=== PATIENT | male | born 1960 | race African-American/Black ===

== ENCOUNTER 2016-09-19 18:54 | Inpatient (IN) | payer SELFPAY ==
[~2016-09-19] VITALS: Ht 160 cm; Wt 63.0 kg
[2016-09-19] MEDS ORDERED: hydrALAZINE 20 MG/ML VIAL. IVP ONE (19:45)
[2016-09-19] MEDS ORDERED: NITROGLYCERIN SUBLINGUAL 0.4 MG BOTTLE OF 25. SL PRN (20:00)
[2016-09-19] MEDS ORDERED: MORPHINE SULFATE 4 MG/ML DISP.SYRIN. IV PRN (20:00)
[2016-09-19] MEDS ORDERED: ONDANSETRON PF 4 MG/2 ML VIAL. IV PRN (20:00)
[2016-09-19 20:16] LABS: BASO % 0 % (0-3); EOS % 4 % (0-3); HEMATOCRIT 43.7 % (39.0-53.0); HEMOGLOBIN 14.4 g/dL (13.0-17.5); LYMPH # 2.1 x10^3/uL (1.0-4.8); LYMPH % 44 % (24-48); MEAN CORPUSCULAR HEMOGLOBIN 32 pg (25-35); MEAN CORPUSCULAR HGB CONC 33 g/dL (31-37); MEAN CORPUSCULAR VOLUME 97 fL (79-100); MONO % 9 % (0-9); NEUT % 43 % (31-73); PLATELET COUNT 197 x10^3/uL (140-400); RED BLOOD COUNT 4.53 x10^6/uL (4.30-5.70); RED CELL DISTRIBUTION WIDTH 14.1 % (11.5-14.5); WHITE BLOOD COUNT 4.9 x10^3/uL (4.0-11.0)
[2016-09-19 20:19] LABS: CREATININE 1.2 mg/dL (0.7-1.3); GFR 75.5; POTASSIUM 3.7 mmol/L (3.5-5.1)
[2016-09-19 20:27] LABS: ALBUMIN 3.5 g/dL (3.4-5.0); TOTAL BILIRUBIN 0.5 mg/dL (0.2-1.0)
[2016-09-19] MEDS: NICARDIPINE HCL 50 MG in IV NORMAL SALINE 250ML 250 ML IV PRN ×2 (20:27→23:56)
--- NOTE | 2016-09-19 20:52 | PHYS DOC ---
Past Medical History Past Medical History: Hypertension Past Surgical History: Other Additional Past Surgical Histo: l arm ortho, Alcohol Use: Occasionally Drug Use: None Adult General Chief Complaint Chief Complaint: CHEST PAIN HPI HPI 56-year-old homeless male who has never really received any medical care presents with off and on chest pain and shortness of breath. Currently he states he feels like he is under water when he is lying flat. He denies any fever chills sweats or hemoptysis. He states is not really had any trouble with swelling in his lower extremities. He denies any illicit drugs.] Review of Systems Review of Systems Constitutional: Denies fever or chills [] Eyes: Denies change in visual acuity, redness, or eye pain [] HENT: Denies nasal congestion or sore throat [] Respiratory: Per history of present illness [] Cardiovascular: No additional information not addressed in HPI [] GI: Denies abdominal pain, nausea, vomiting, bloody stools or diarrhea [] : Denies dysuria or hematuria [] Musculoskeletal: Denies back pain or joint pain [] Integument: Denies rash or skin lesions [] Neurologic: Denies headache, focal weakness or sensory changes [] Endocrine: Denies polyuria or polydipsia [] Current Medications Current Medications Current Medications Medications (Trade) Dose Ordered Sig/Rima Start Time Stop Time Status Last Admin Dose Admin Hydralazine HCl (Apresoline) 10 mg 1X ONCE 09/19/16 19:45 09/19/16 19:51 DC 09/19/16 20:21 10 MG Morphine Sulfate 4 mg PRN Q2HR PRN 09/19/16 20:00 09/20/16 19:59 Nicardipine HCl/ Sodium Chloride (Cardene/Iv Sodium Chloride 0.9% 250ml) 270 ml @ 0 mls/hr CONT PRN 09/19/16 20:00 09/19/16 20:27 25 MLS/HR Nitroglycerin 0.4 mg 0.4 mg PRN Q5MIN PRN 09/19/16 20:00 09/20/16 19:59 Ondansetron HCl (Zofran) 4 mg PRN Q8HRS PRN 09/19/16 20:00 09/20/16 19:59 09/19/16 20:21 4 MG Allergies Allergies Allergies Coded Allergies Type Severity Reaction Last Updated Verified No Known Drug Allergies 09/19/16 No Physical Exam Physical Exam Constitutional: Well developed, well nourished, no acute distress, non-toxic appearance. [] HENT: Normocephalic, atraumatic, bilateral external ears normal, oropharynx moist, no oral exudates, nose normal. [] Eyes: PERRLA, EOMI, conjunctiva normal, no discharge. [] Neck: Normal range of motion, no tenderness, supple, no stridor. [] Cardiovascular:Heart rate regular rhythm, no murmur [] Lungs & Thorax: Bilateral breath sounds clear to auscultation [] Abdomen: Bowel sounds normal, soft, no tenderness, no masses, no pulsatile masses. [] Skin: Warm, dry, no erythema, no rash. [] Back: No tenderness, no CVA tenderness. [] Extremities: No tenderness, no cyanosis, no clubbing, ROM intact, no edema. [] Neurologic: Alert and oriented X 3, normal motor function, normal sensory function, no focal deficits noted. [] Psychologic: Depressed affect. [] Current Patient Data Vital Signs Vital Signs Date Time Temp Pulse Resp B/P Pulse Ox O2 Delivery O2 Flow Rate FiO2 09/19/16 20:32 80 18 181/110 96 Room Air 09/19/16 19:15 98.1 98.1 Lab Values Laboratory Tests Test 09/19/16 19:55 White Blood Count 4.9x10^3/uL (4.0-11.0) Red Blood Count 4.53x10^6/uL (4.30-5.70) Hemoglobin 14.4g/dL (13.0-17.5) Hematocrit 43.7% (39.0-53.0) Mean Corpuscular Volume 97fL (79-100) Mean Corpuscular Hemoglobin 32pg (25-35) Mean Corpuscular Hemoglobin Concent 33g/dL (31-37) Red Cell Distribution Width 14.1% (11.5-14.5) Platelet Count 197x10^3/uL (140-400) Neutrophils (%) (Auto) 43% (31-73) Lymphocytes (%) (Auto) 44% (24-48) Monocytes (%) (Auto) 9% (0-9) Eosinophils (%) (Auto) 4% (0-3) H Basophils (%) (Auto) 0% (0-3) Neutrophils # (Auto) 2.1x10^3uL (1.8-7.7) Lymphocytes # (Auto) 2.1x10^3/uL (1.0-4.8) Monocytes # (Auto) 0.5x10^3/uL (0.0-1.1) Eosinophils # (Auto) 0.2x10^3/uL (0.0-0.7) Basophils # (Auto) 0.0x10^3/uL (0.0-0.2) Sodium Level 145mmol/L (136-145) Potassium Level 3.7mmol/L (3.5-5.1) Chloride Level 106mmol/L (98-107) Carbon Dioxide Level 27mmol/L (21-32) Anion Gap 12 (6-14) Blood Urea Nitrogen 18mg/dL (8-26) Creatinine 1.2mg/dL (0.7-1.3) Estimated GFR (Cockcroft-Gault) 75.5 BUN/Creatinine Ratio 15 (6-20) Glucose Level 117mg/dL (70-99) H Calcium Level 9.0mg/dL (8.5-10.1) Total Bilirubin 0.5mg/dL (0.2-1.0) Aspartate Amino Transferase (AST) 72U/L (15-37) H Alanine Aminotransferase (ALT) 65U/L (16-63) H Alkaline Phosphatase 47U/L (46-116) Troponin I Quantitative 0.094ng/mL (0.000-0.055) Total Protein 7.0g/dL (6.4-8.2) Albumin 3.5g/dL (3.4-5.0) Albumin/Globulin Ratio 1.0 (1.0-1.7) Laboratory Tests 09/19/16 19:55 Laboratory Tests 09/19/16 19:55 EKG EKG EKG: Normal sinus rhythm hypertensive changes rate of 70 [] Radiology/Procedures Radiology/Procedures [] Impressions: Chest x-ray: Cardiomegaly with mild venous congestion Course & Med Decision Making Course & Med Decision Making Pertinent Labs and Imaging studies reviewed. (See chart for details) [ED course: Evaluation reveals a 56-year-old male with malignant hypertension. Patient was given 10 mg of hydralazine which did lower his blood pressure into the 180 range with a reduction in symptoms. He was also started on a Cardene drip which stabilized his blood pressure. Spoke with Dr. Atkinson who agreed to admit the patient. We will consult cardiology to help with his abnormal EKG. CRITICAL CARE time was 30 minutes - time exclusive of any procedures performed. Care included medical management, x-ray/lab interpretation, discussions with the patient and their family as well as appropriate medical consultants.] Dragon Disclaimer Dragon Disclaimer This electronic medical record was generated, in whole or in part, using a voice recognition dictation system. Departure Departure Impression: Primary Impression: Malignant essential hypertension Additional Impression: Chest pain Disposition: ADMITTED INPATIENT Admitting Physician: Other (Dr. Atkinson) Referrals: NO PCP (PCP) Problem Qualifiers Additional Impression: Chest pain Chest pain type: unspecified Qualified Code: R07.9 - Chest pain, unspecified CLIFTON MEDELLIN DO Sep 19, 2016 20:52
--- NOTE | 2016-09-19 21:10 | ACF ---
Admission Forms Criteria HYPERTENSION Clinical Indications for Admission to Inpatient Care ( Place "X" for any and all applicable criteria): Admission is indicated for ANY ONE of the following(1)(2)(3)(4): [ ]I. Hypertensive emergency, with evidence of acute and progressing target organ disease as indicated by ANY ONE of the following: [ ]a) Hypertensive encephalopathy (eg, confusion, altered mental status) [ ]b) Cerebral infarction [ ]c) Intracranial hemorrhage [ ]d) Myocardial ischemia or infarction [ ]e) Pulmonary edema [ ]f) Aortic dissection [ ]g) Seizure [ ]h) Acute renal insufficiency [ ]i) Papilledema [ ]j) Microangiopathic hemolytic anemia [ ]II. Adrenergic crisis (eg, severe hypertension due to pheochromocytoma crisis, cocaine or amphetamine intoxication, or clonidine withdrawal) [X]III. Severe hypertension (SBP greater than 180 mmHg or DBP greater than 110 mmHg or greater than the 95th percentile for age, gender, and height in pediatric patients) that cannot be controlled (eg, to SBP less than 160 mmHg and DBP less than 100 mmHg in adults) by treatment with oral medication in emergency department or observation care Extended stay beyond goal length of stay may be needed for(11)(12)(13): [ ]a) Persistent hypertensive encephalopathy [ ]b) Continuation of pulmonary edema [ ]c) Recurring or persistent severe hypertension [ ]d) Target organ damage (eg, angina, stroke, aortic dissection) [ ]e) Associated renal insufficiency The original [facility] content created by [employer] has been revised. The portions of the content which have been revised are identified through the use of italic text or in bold, and [facility] has neither reviewed nor approved the modified material. All other unmodified content is copyright [facility] [employer]. Please see references footnoted in the original [facility] edition 2016 Admission Criteria Met?: Yes JOSELO MUÑOZ Sep 19, 2016 21:10
[2016-09-19] MEDS ORDERED: IV NORMAL SALINE 500ML BAG 500 ML IV ONE ×2 (21:15→22:15)
[2016-09-19] MEDS ORDERED: PROMETHAZINE 12.5 MG in IV NORMAL SALINE 50ML 50 ML IV ONE (21:15)
[2016-09-19 23:00] VITALS: BP 208/125
[2016-09-19] MEDS ORDERED: INFLUENZA VAX SCREEN BY RX. MC ONE (23:15)
[2016-09-19 23:32] LABS: BILIRUBIN,URINE NEGATIVE (NEG); GLUCOSE,URINE 100 mg/dL (NEG); NITRITE,URINE NEGATIVE (NEG); PH,URINE 6.5; PROTEIN,URINE NEGATIVE (NEG-TRACE)
[2016-09-19 23:40] LABS: BARBITURATES NEG (NEG); BENZODIAZEPINES NEG (NEG); CANNABINOIDS NEG (NEG); COCAINE POS (NEG); ETHANOL, URINE POS (NEG); METHADONE NEG (NEG); OPIATES NEG (NEG); PHENCYCLIDINE NEG (NEG)
[2016-09-19 23:42] LABS: BACTERIA,URINE 0 /HPF (0-FEW); RBC,URINE 0 /HPF (0-2); WBC,URINE RARE /HPF (0-4)
[2016-09-20] VITALS (15 sets, daily range): BP systolic 107–176; BP diastolic 68–102
--- NOTE | 2016-09-20 01:10 | HP ---
ADMIT DATE: 09/19/2016 CHIEF COMPLAINT: Shortness of breath. HISTORY OF PRESENT ILLNESS: The patient is a 56-year-old gentleman who apparently is homeless, but is helped out by an elderly woman from time to time. She dropped him off today with increased shortness of breath. In the Emergency Room, he was found with hypertensive urgency, started on Cardene drip and admitted to the ICU. The patient relates now that his symptoms are much improved. He denies any chest pain, any palpitations, any nausea, vomiting or dizziness. PAST MEDICAL HISTORY: Hypertension, not on any medications. FAMILY HISTORY: Unknown to patient. SOCIAL HISTORY: Homeless, smokes about 2 cigarettes a day. Admits to a few beers a day, admits to cannabis. Denies any other drugs. However, drug screen today is positive for cocaine as well. ALLERGIES: No known drug allergies. MEDICATIONS: None. REVIEW OF SYSTEMS: Positive as per HPI. Rest of organ system review is negative. PHYSICAL EXAMINATION: VITAL SIGNS: Currently, show a blood pressure of 162/92, heart rate of 77, respiratory rate at 18. He is afebrile. GENERAL: This is a well-nourished, well developed 56-year-old gentleman resting in bed, in no acute distress. HEENT: Shows no scleral icterus. NECK: Supple. LUNGS: Clear to auscultation bilaterally. CARDIOVASCULAR: Regular rate and rhythm. ABDOMEN: Has positive bowel sounds, soft, nontender. EXTREMITIES: Show no edema. LABORATORY DATA: CBC with a WBC of 4.9, hemoglobin 14.4, platelets of 197. BUN and creatinine 18 and 1.2 and normal electrolytes. LFTs slightly elevated at 72 and 65. Initial troponin at 0.094. ProBNP at 1250. Tox screen positive for alcohol and cocaine. IMAGING: Chest x-ray reviewed by myself shows mild cardiomegaly and no pulmonary abnormalities. ASSESSMENT AND PLAN: The patient is a 56-year-old gentleman with known hypertension, untreated, who now presents with hypertensive urgency. Blood pressure is getting under control with Cardizem drip. Cardiology has been consulted. Suspect, however, that noncompliance with medications will be the stumbling block in the near future as well. With mildly elevated troponins, we will rule out for ACS. Suspicion, however, is that this may be secondary to hypertensive urgency. Drug abuse including cocaine may play a role in there as well. ANAND MELCHOR MD DR: FILI/nts JOB#: [id number] / [id number] MARCIE
--- NOTE | 2016-09-20 06:49 | EKG ---
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
--- NOTE | 2016-09-20 08:01 | RAD ---
Portable chest, 09/19/2016: History: Shortness of breath The heart is mildly enlarged. There is tortuosity of the thoracic aorta. The pulmonary vascularity is normal. No pulmonary infiltrates are seen. There is no evidence of pleural fluid. IMPRESSION: 1. Mild cardiomegaly and aortic tortuosity. 2. No acute abnormality is detected.
[2016-09-20] MEDS ORDERED: FLU VACC QUAD 2016-17 (36MOS+)/PF 0.5 ML SYRINGE. VAX IM ONE (09:00)
[2016-09-20] MEDS ORDERED: ONDANSETRON PF 4 MG/2 ML VIAL. IV PRN (09:52)
[2016-09-20] MEDS ORDERED: ACETAMINOPHEN 500 MG TABLET PO PRN (10:00)
--- NOTE | 2016-09-20 10:27 | PDOC2 ---
RAYMOND AL NETWORK PROJECT MANAGER 09/20/16 1027: CARDIAC CONSULT DATE OF CONSULT Date of Consult DATE: 09/20/16 TIME: 10:11 REASON FOR CONSULT Reason for Consult: SOA, abnormal EKG REFERRING PHYSICIAN Referring Physician: Sanjuana SOURCE Source: Chart review, Patient HISTORY OF PRESENT ILLNESS HISTORY OF PRESENT ILLNESS This is a 56 yo male admitted for complains of SOA. This has been ongoing in the last 1-2 weeks and progressed gradually. Started of with SOA with exertion then to rest, progressing to orthopnea, nonproductive cough and PND. Denies any chest pain, palpitations or dizziness. Denies any past CAD, arrhythmia, VTE , recent injury, fever, chills. Reports use of tobacco, ETOH, marijuana and cocaine. PAST MEDICAL HISTORY Past Medical History Known HTN otherwise no other history. No routine medications PAST SURGICAL HISTORY Past Surgical History: Other (left elbow repair) FAMILY HISTORY Family History: Family History Unknown SOCIAL HISTORY Smoke: <1 pack per day ALCOHOL: heavy (4-5 shots of gin 4x weekly) Drugs: Cocaine, Marijuana Lives: Alone (homeless) CURRENT MEDICATIONS CURRENT MEDICATIONS Current Medications Medications (Trade) Dose Ordered Sig/Rima Route PRN Reason Start Time Stop Time Status Last Admin Dose Admin Hydralazine HCl (Apresoline) 10 mg 1X ONCE IVP 09/19/16 19:45 09/19/16 19:51 DC 09/19/16 20:21 Ondansetron HCl 4 mg 4 mg PRN Q8HRS PRN IV NAUSEA/VOMITING 09/19/16 20:00 09/20/16 09:53 DC 09/19/16 20:21 Nicardipine HCl 50 mg/Sodium Chloride 270 ml @ 0 mls/hr CONT PRN IV SEE I/O RECORD 09/19/16 20:00 09/19/16 23:56 Promethazine HCl 12.5 mg/Sodium Chloride 50.5 ml @ 101 mls/hr 1X ONCE IV 09/19/16 21:15 09/19/16 21:44 DC 09/19/16 21:15 Sodium Chloride (Iv Sodium Chloride 0.9% 500ml Bag) 500 ml @ 0 mls/hr 1X ONCE IV 09/19/16 21:15 09/19/16 21:16 DC 09/19/16 21:15 ALLERGIES ALLERGIES: Coded Allergies: No Known Drug Allergies (Unverified , 09/19/16) ROS Review of System 14 point ROS evaluated with pertinent positives noted per HPI PHYSICAL EXAM General: Alert, Oriented X3, Cooperative, No acute distress HEENT: Atraumatic, Mucous membr. moist/pink Lungs: Clear to auscultation, Normal air movement Heart: Regular rate, Normal S1, Normal S2, Other (3/6 systolic murmur to LLS border) Extremities: No cyanosis, No edema Skin: No breakdown, No significant lesion Neuro: Normal speech, Sensation intact Psych/Mental Status: Mental status NL, Mood NL MUSCULOSKELETAL: Osteoarthritic changes both hands VITALS VITALS Vital Signs Date Time Temp Pulse Resp B/P Pulse Ox O2 Delivery O2 Flow Rate FiO2 09/20/16 08:00 Room Air 09/20/16 07:00 98.3 75 18 131/87 97 98.3 LABS Lab: Laboratory Tests Test 09/19/16 19:55 09/19/16 23:00 09/20/16 01:55 09/20/16 08:00 White Blood Count 4.9x10^3/uL (4.0-11.0) Red Blood Count 4.53x10^6/uL (4.30-5.70) Hemoglobin 14.4g/dL (13.0-17.5) Hematocrit 43.7% (39.0-53.0) Mean Corpuscular Volume 97fL (79-100) Mean Corpuscular Hemoglobin 32pg (25-35) Mean Corpuscular Hemoglobin Concent 33g/dL (31-37) Red Cell Distribution Width 14.1% (11.5-14.5) Platelet Count 197x10^3/uL (140-400) Neutrophils (%) (Auto) 43% (31-73) Lymphocytes (%) (Auto) 44% (24-48) Monocytes (%) (Auto) 9% (0-9) Eosinophils (%) (Auto) 4% (0-3) Basophils (%) (Auto) 0% (0-3) Neutrophils # (Auto) 2.1x10^3uL (1.8-7.7) Lymphocytes # (Auto) 2.1x10^3/uL (1.0-4.8) Monocytes # (Auto) 0.5x10^3/uL (0.0-1.1) Eosinophils # (Auto) 0.2x10^3/uL (0.0-0.7) Basophils # (Auto) 0.0x10^3/uL (0.0-0.2) Sodium Level 145mmol/L (136-145) Potassium Level 3.7mmol/L (3.5-5.1) Chloride Level 106mmol/L (98-107) Carbon Dioxide Level 27mmol/L (21-32) Anion Gap 12 (6-14) Blood Urea Nitrogen 18mg/dL (8-26) Creatinine 1.2mg/dL (0.7-1.3) Estimated GFR (Cockcroft-Gault) 75.5 BUN/Creatinine Ratio 15 (6-20) Glucose Level 117mg/dL (70-99) Calcium Level 9.0mg/dL (8.5-10.1) Total Bilirubin 0.5mg/dL (0.2-1.0) Aspartate Amino Transf (AST/SGOT) 72U/L (15-37) Alanine Aminotransferase (ALT/SGPT) 65U/L (16-63) Alkaline Phosphatase 47U/L (46-116) Troponin I Quantitative 0.094ng/mL (0.000-0.055) 0.098ng/mL (0.000-0.055) 0.064ng/mL (0.000-0.055) CS-Nyc-Z-Type Natriuretic Peptide 1250pg/mL (0-124) Total Protein 7.0g/dL (6.4-8.2) Albumin 3.5g/dL (3.4-5.0) Albumin/Globulin Ratio 1.0 (1.0-1.7) Urine Collection Type Unknown Urine Color Yellow Urine Clarity Clear Urine pH 6.5 Urine Specific Froid 1.020 Urine Protein Negativemg/dL (NEG-TRACE) Urine Glucose (UA) 100mg/dL (NEG) Urine Ketones (Stick) Negativemg/dL (NEG) Urine Blood Negative (NEG) Urine Nitrite Negative (NEG) Urine Bilirubin Negative (NEG) Urine Urobilinogen Dipstick 1.0mg/dL (0.2 mg/dL) Urine Leukocyte Esterase Negative (NEG) Urine RBC 0/HPF (0-2) Urine WBC Rare/HPF (0-4) Urine Squamous Epithelial Cells None/LPF Urine Bacteria 0/HPF (0-FEW) Urine Hyaline Casts Few/HPF Urine Mucus Mod/LPF Urine Opiates Screen Neg (NEG) Urine Methadone Screen Neg (NEG) Urine Barbiturates Neg (NEG) Urine Phencyclidine Screen Neg (NEG) Urine Amphetamine/Methamphetamine Neg (NEG) Urine Benzodiazepines Screen Neg (NEG) Urine Cocaine Screen Pos (NEG) Urine Cannabinoids Screen Neg (NEG) Urine Ethyl Alcohol Pos (NEG) ASSESSMENT/PLAN ASSESSMENT/PLAN 1. Malignant HTN: much better with cardene. 2. Acute CHF with possible diastolic dysfunction 3. Poly-Substance abuse: cocaine (1-2x weekly) and ETOH(4-5 shots of gin 4x weekly) 4. Elevated troponin: Peaked at 0.09. Suspect demand mediated due to above. EKG SR with LVH/LV strain. CP free 5. Tobaccoism 6. Homelessness Recommendations 1. Discussed lifestyle modifications and adherence to treatment. 2. Social service consult 3. TTE, CMP, Mg, TSH, lipid panel. 4. Replace lytes as warranted 5. ECASA. Start on lisinopril/HCTZ and imdur. Hydralazine IV prn. Titrate off cardene. 6. Avoid BB due to cocaine use Problems: ANETTE GOMES MD 09/20/16 1351: CARDIAC CONSULT ALLERGIES ALLERGIES: Coded Allergies: No Known Drug Allergies (Unverified , 09/19/16) ASSESSMENT/PLAN ASSESSMENT/PLAN Pt. seen and examined. Agree with above BRAND DESIGNER note. 56 y.o male with polysubstance abuse. No CV abn on exam. Labs/meds reviewed. Meds being titrated. Supportive care. Will f/u after above studies. Thx for consult. Anticipate conservative mgmt for now. Problems: RAYMOND AL APRN Sep 20, 2016 10:27 ANETTE GOMES MD Sep 20, 2016 13:51
[2016-09-20 11:15] LABS: ALBUMIN 3.4 g/dL (3.4-5.0); CALCIUM 8.5 mg/dL (8.5-10.1); CHOLESTEROL/HDL RATIO 1.9; CREATININE 1.2 mg/dL (0.7-1.3); GFR 75.5; MAGNESIUM 1.6 mg/dL (1.8-2.4); POTASSIUM 3.3 mmol/L (3.5-5.1); TOTAL BILIRUBIN 0.5 mg/dL (0.2-1.0); TOTAL PROTEIN 6.7 g/dL (6.4-8.2)
[2016-09-20] MEDS ORDERED: POTASSIUM CHLORIDE 20 MEQ TABLET.ER. PO ONE (11:30)
[2016-09-20] MEDS ORDERED: hydrALAZINE 20 MG/ML VIAL. IVP PRN (11:30)
[2016-09-20] MEDS ORDERED: MAGNESIUM SULFATE 2GM 50 ML IV ONE (12:00)
[2016-09-20] MEDS: ASPIRIN ENTERIC COATED 81 MG TABLET.DR. PO SCH (12:41)
[2016-09-20] MEDS: ISOSORBIDE MONONITRATE ER 30 MG TAB.ER.24H PO SCH (12:44)
[2016-09-20] MEDS: HYDROCHLOROTHIAZIDE 12.5 MG CAPSULE. PO SCH (12:44)
[2016-09-20] MEDS: LISINOPRIL 20 MG TABLET PO SCH ×2 (12:45→21:11)
--- NOTE | 2016-09-20 15:06 | PDOC ---
PROGRESS NOTES Chief Complaint Chief Complaint 1. Malignant HTN 2. Homeless History of Present Illness History of Present Illness Off cardizem gtt Started on PO BP meds by cards Pt is homeless and interested in senior living PLAN: SW for homeless senior living If BP good control overnight, dc homeless senior living deonte Vitals Vitals Vital Signs Date Time Temp Pulse Resp B/P Pulse Ox O2 Delivery O2 Flow Rate FiO2 09/20/16 14:48 68 19 138/87 96 Room Air 09/20/16 11:06 98.8 98.8 Physical Exam General: Alert, Oriented X3, Cooperative, No acute distress Heart: Regular rate, Normal S1, Normal S2, Other (3/6 systolic murmur to LLS border) Extremities: No cyanosis, No edema Skin: No breakdown, No significant lesion Labs LABS Laboratory Tests Test 09/19/16 19:55 09/19/16 23:00 09/20/16 01:55 09/20/16 08:00 White Blood Count 4.9x10^3/uL (4.0-11.0) Red Blood Count 4.53x10^6/uL (4.30-5.70) Hemoglobin 14.4g/dL (13.0-17.5) Hematocrit 43.7% (39.0-53.0) Mean Corpuscular Volume 97fL (79-100) Mean Corpuscular Hemoglobin 32pg (25-35) Mean Corpuscular Hemoglobin Concent 33g/dL (31-37) Red Cell Distribution Width 14.1% (11.5-14.5) Platelet Count 197x10^3/uL (140-400) Neutrophils (%) (Auto) 43% (31-73) Lymphocytes (%) (Auto) 44% (24-48) Monocytes (%) (Auto) 9% (0-9) Eosinophils (%) (Auto) 4% (0-3) Basophils (%) (Auto) 0% (0-3) Neutrophils # (Auto) 2.1x10^3uL (1.8-7.7) Lymphocytes # (Auto) 2.1x10^3/uL (1.0-4.8) Monocytes # (Auto) 0.5x10^3/uL (0.0-1.1) Eosinophils # (Auto) 0.2x10^3/uL (0.0-0.7) Basophils # (Auto) 0.0x10^3/uL (0.0-0.2) Sodium Level 145mmol/L (136-145) 144mmol/L (136-145) Potassium Level 3.7mmol/L (3.5-5.1) 3.3mmol/L (3.5-5.1) Chloride Level 106mmol/L (98-107) 108mmol/L (98-107) Carbon Dioxide Level 27mmol/L (21-32) 24mmol/L (21-32) Anion Gap 12 (6-14) 12 (6-14) Blood Urea Nitrogen 18mg/dL (8-26) 15mg/dL (8-26) Creatinine 1.2mg/dL (0.7-1.3) 1.2mg/dL (0.7-1.3) Estimated GFR (Cockcroft-Gault) 75.5 75.5 BUN/Creatinine Ratio 15 (6-20) 13 (6-20) Glucose Level 117mg/dL (70-99) 100mg/dL (70-99) Calcium Level 9.0mg/dL (8.5-10.1) 8.5mg/dL (8.5-10.1) Total Bilirubin 0.5mg/dL (0.2-1.0) 0.5mg/dL (0.2-1.0) Aspartate Amino Transf (AST/SGOT) 72U/L (15-37) 47U/L (15-37) Alanine Aminotransferase (ALT/SGPT) 65U/L (16-63) 54U/L (16-63) Alkaline Phosphatase 47U/L (46-116) 42U/L (46-116) Troponin I Quantitative 0.094ng/mL (0.000-0.055) 0.098ng/mL (0.000-0.055) 0.064ng/mL (0.000-0.055) NU-Gjq-W-Type Natriuretic Peptide 1250pg/mL (0-124) Total Protein 7.0g/dL (6.4-8.2) 6.7g/dL (6.4-8.2) Albumin 3.5g/dL (3.4-5.0) 3.4g/dL (3.4-5.0) Albumin/Globulin Ratio 1.0 (1.0-1.7) 1.0 (1.0-1.7) Urine Collection Type Unknown Urine Color Yellow Urine Clarity Clear Urine pH 6.5 Urine Specific [place] 1.020 Urine Protein Negativemg/dL (NEG-TRACE) Urine Glucose (UA) 100mg/dL (NEG) Urine Ketones (Stick) Negativemg/dL (NEG) Urine Blood Negative (NEG) Urine Nitrite Negative (NEG) Urine Bilirubin Negative (NEG) Urine Urobilinogen Dipstick 1.0mg/dL (0.2 mg/dL) Urine Leukocyte Esterase Negative (NEG) Urine RBC 0/HPF (0-2) Urine WBC Rare/HPF (0-4) Urine Squamous Epithelial Cells None/LPF Urine Bacteria 0/HPF (0-FEW) Urine Hyaline Casts Few/HPF Urine Mucus Mod/LPF Urine Opiates Screen Neg (NEG) Urine Methadone Screen Neg (NEG) Urine Barbiturates Neg (NEG) Urine Phencyclidine Screen Neg (NEG) Urine Amphetamine/Methamphetamine Neg (NEG) Urine Benzodiazepines Screen Neg (NEG) Urine Cocaine Screen Pos (NEG) Urine Cannabinoids Screen Neg (NEG) Urine Ethyl Alcohol Pos (NEG) Magnesium Level 1.6mg/dL (1.8-2.4) Triglycerides Level 92mg/dL (0-150) Cholesterol Level 197mg/dL (0-200) LDL Cholesterol, Calculated 77mg/dL (0-100) VLDL Cholesterol, Calculated 18mg/dL (0-40) HDL Cholesterol 102mg/dL (40-60) Cholesterol/HDL Ratio 1.9 Thyroid Stimulating Hormone (TSH) 1.463uIU/mL (0.358-3.74) Review of Systems Review of Systems denies all 14 pt reviewed Assessment and Plan Assessmemt and Plan Problems Medical Problems: (1) Chest pain Status: Acute (2) Malignant essential hypertension Status: Acute Problems: Comment Review of Relevant I have reviewed the following items kathe (where applicable) has been applied. Labs Laboratory Tests Test 09/19/16 19:55 09/19/16 23:00 09/20/16 01:55 09/20/16 08:00 White Blood Count 4.9x10^3/uL (4.0-11.0) Red Blood Count 4.53x10^6/uL (4.30-5.70) Hemoglobin 14.4g/dL (13.0-17.5) Hematocrit 43.7% (39.0-53.0) Mean Corpuscular Volume 97fL (79-100) Mean Corpuscular Hemoglobin 32pg (25-35) Mean Corpuscular Hemoglobin Concent 33g/dL (31-37) Red Cell Distribution Width 14.1% (11.5-14.5) Platelet Count 197x10^3/uL (140-400) Neutrophils (%) (Auto) 43% (31-73) Lymphocytes (%) (Auto) 44% (24-48) Monocytes (%) (Auto) 9% (0-9) Eosinophils (%) (Auto) 4% (0-3) Basophils (%) (Auto) 0% (0-3) Neutrophils # (Auto) 2.1x10^3uL (1.8-7.7) Lymphocytes # (Auto) 2.1x10^3/uL (1.0-4.8) Monocytes # (Auto) 0.5x10^3/uL (0.0-1.1) Eosinophils # (Auto) 0.2x10^3/uL (0.0-0.7) Basophils # (Auto) 0.0x10^3/uL (0.0-0.2) Sodium Level 145mmol/L (136-145) 144mmol/L (136-145) Potassium Level 3.7mmol/L (3.5-5.1) 3.3mmol/L (3.5-5.1) Chloride Level 106mmol/L (98-107) 108mmol/L (98-107) Carbon Dioxide Level 27mmol/L (21-32) 24mmol/L (21-32) Anion Gap 12 (6-14) 12 (6-14) Blood Urea Nitrogen 18mg/dL (8-26) 15mg/dL (8-26) Creatinine 1.2mg/dL (0.7-1.3) 1.2mg/dL (0.7-1.3) Estimated GFR (Cockcroft-Gault) 75.5 75.5 BUN/Creatinine Ratio 15 (6-20) 13 (6-20) Glucose Level 117mg/dL (70-99) 100mg/dL (70-99) Calcium Level 9.0mg/dL (8.5-10.1) 8.5mg/dL (8.5-10.1) Total Bilirubin 0.5mg/dL (0.2-1.0) 0.5mg/dL (0.2-1.0) Aspartate Amino Transf (AST/SGOT) 72U/L (15-37) 47U/L (15-37) Alanine Aminotransferase (ALT/SGPT) 65U/L (16-63) 54U/L (16-63) Alkaline Phosphatase 47U/L (46-116) 42U/L (46-116) Troponin I Quantitative 0.094ng/mL (0.000-0.055) 0.098ng/mL (0.000-0.055) 0.064ng/mL (0.000-0.055) DH-Lht-O-Type Natriuretic Peptide 1250pg/mL (0-124) Total Protein 7.0g/dL (6.4-8.2) 6.7g/dL (6.4-8.2) Albumin 3.5g/dL (3.4-5.0) 3.4g/dL (3.4-5.0) Albumin/Globulin Ratio 1.0 (1.0-1.7) 1.0 (1.0-1.7) Urine Collection Type Unknown Urine Color Yellow Urine Clarity Clear Urine pH 6.5 Urine Specific [place] 1.020 Urine Protein Negativemg/dL (NEG-TRACE) Urine Glucose (UA) 100mg/dL (NEG) Urine Ketones (Stick) Negativemg/dL (NEG) Urine Blood Negative (NEG) Urine Nitrite Negative (NEG) Urine Bilirubin Negative (NEG) Urine Urobilinogen Dipstick 1.0mg/dL (0.2 mg/dL) Urine Leukocyte Esterase Negative (NEG) Urine RBC 0/HPF (0-2) Urine WBC Rare/HPF (0-4) Urine Squamous Epithelial Cells None/LPF Urine Bacteria 0/HPF (0-FEW) Urine Hyaline Casts Few/HPF Urine Mucus Mod/LPF Urine Opiates Screen Neg (NEG) Urine Methadone Screen Neg (NEG) Urine Barbiturates Neg (NEG) Urine Phencyclidine Screen Neg (NEG) Urine Amphetamine/Methamphetamine Neg (NEG) Urine Benzodiazepines Screen Neg (NEG) Urine Cocaine Screen Pos (NEG) Urine Cannabinoids Screen Neg (NEG) Urine Ethyl Alcohol Pos (NEG) Magnesium Level 1.6mg/dL (1.8-2.4) Triglycerides Level 92mg/dL (0-150) Cholesterol Level 197mg/dL (0-200) LDL Cholesterol, Calculated 77mg/dL (0-100) VLDL Cholesterol, Calculated 18mg/dL (0-40) HDL Cholesterol 102mg/dL (40-60) Cholesterol/HDL Ratio 1.9 Thyroid Stimulating Hormone (TSH) 1.463uIU/mL (0.358-3.74) Laboratory Tests Test 09/19/16 19:55 09/19/16 23:00 09/20/16 01:55 09/20/16 08:00 White Blood Count 4.9x10^3/uL (4.0-11.0) Red Blood Count 4.53x10^6/uL (4.30-5.70) Hemoglobin 14.4g/dL (13.0-17.5) Hematocrit 43.7% (39.0-53.0) Mean Corpuscular Volume 97fL (79-100) Mean Corpuscular Hemoglobin 32pg (25-35) Mean Corpuscular Hemoglobin Concent 33g/dL (31-37) Red Cell Distribution Width 14.1% (11.5-14.5) Platelet Count 197x10^3/uL (140-400) Neutrophils (%) (Auto) 43% (31-73) Lymphocytes (%) (Auto) 44% (24-48) Monocytes (%) (Auto) 9% (0-9) Eosinophils (%) (Auto) 4% (0-3) Basophils (%) (Auto) 0% (0-3) Neutrophils # (Auto) 2.1x10^3uL (1.8-7.7) Lymphocytes # (Auto) 2.1x10^3/uL (1.0-4.8) Monocytes # (Auto) 0.5x10^3/uL (0.0-1.1) Eosinophils # (Auto) 0.2x10^3/uL (0.0-0.7) Basophils # (Auto) 0.0x10^3/uL (0.0-0.2) Sodium Level 145mmol/L (136-145) 144mmol/L (136-145) Potassium Level 3.7mmol/L (3.5-5.1) 3.3mmol/L (3.5-5.1) Chloride Level 106mmol/L (98-107) 108mmol/L (98-107) Carbon Dioxide Level 27mmol/L (21-32) 24mmol/L (21-32) Anion Gap 12 (6-14) 12 (6-14) Blood Urea Nitrogen 18mg/dL (8-26) 15mg/dL (8-26) Creatinine 1.2mg/dL (0.7-1.3) 1.2mg/dL (0.7-1.3) Estimated GFR (Cockcroft-Gault) 75.5 75.5 BUN/Creatinine Ratio 15 (6-20) 13 (6-20) Glucose Level 117mg/dL (70-99) 100mg/dL (70-99) Calcium Level 9.0mg/dL (8.5-10.1) 8.5mg/dL (8.5-10.1) Total Bilirubin 0.5mg/dL (0.2-1.0) 0.5mg/dL (0.2-1.0) Aspartate Amino Transf (AST/SGOT) 72U/L (15-37) 47U/L (15-37) Alanine Aminotransferase (ALT/SGPT) 65U/L (16-63) 54U/L (16-63) Alkaline Phosphatase 47U/L (46-116) 42U/L (46-116) Troponin I Quantitative 0.094ng/mL (0.000-0.055) 0.098ng/mL (0.000-0.055) 0.064ng/mL (0.000-0.055) LB-Coy-X-Type Natriuretic Peptide 1250pg/mL (0-124) Total Protein 7.0g/dL (6.4-8.2) 6.7g/dL (6.4-8.2) Albumin 3.5g/dL (3.4-5.0) 3.4g/dL (3.4-5.0) Albumin/Globulin Ratio 1.0 (1.0-1.7) 1.0 (1.0-1.7) Urine Collection Type Unknown Urine Color Yellow Urine Clarity Clear Urine pH 6.5 Urine Specific [place] 1.020 Urine Protein Negativemg/dL (NEG-TRACE) Urine Glucose (UA) 100mg/dL (NEG) Urine Ketones (Stick) Negativemg/dL (NEG) Urine Blood Negative (NEG) Urine Nitrite Negative (NEG) Urine Bilirubin Negative (NEG) Urine Urobilinogen Dipstick 1.0mg/dL (0.2 mg/dL) Urine Leukocyte Esterase Negative (NEG) Urine RBC 0/HPF (0-2) Urine WBC Rare/HPF (0-4) Urine Squamous Epithelial Cells None/LPF Urine Bacteria 0/HPF (0-FEW) Urine Hyaline Casts Few/HPF Urine Mucus Mod/LPF Urine Opiates Screen Neg (NEG) Urine Methadone Screen Neg (NEG) Urine Barbiturates Neg (NEG) Urine Phencyclidine Screen Neg (NEG) Urine Amphetamine/Methamphetamine Neg (NEG) Urine Benzodiazepines Screen Neg (NEG) Urine Cocaine Screen Pos (NEG) Urine Cannabinoids Screen Neg (NEG) Urine Ethyl Alcohol Pos (NEG) Magnesium Level 1.6mg/dL (1.8-2.4) Triglycerides Level 92mg/dL (0-150) Cholesterol Level 197mg/dL (0-200) LDL Cholesterol, Calculated 77mg/dL (0-100) VLDL Cholesterol, Calculated 18mg/dL (0-40) HDL Cholesterol 102mg/dL (40-60) Cholesterol/HDL Ratio 1.9 Thyroid Stimulating Hormone (TSH) 1.463uIU/mL (0.358-3.74) Medications Current Medications Hydralazine HCl (Apresoline) 10 mg 1X ONCE IVP Last administered on 09/19/16 20:21; Start 09/19/16 at 19:45; Stop 09/19/16 at 19:51; Status DC Ondansetron HCl (Zofran) 4 mg PRN Q8HRS PRN IV NAUSEA/VOMITING Last administered on 09/19/16 20:21; Start 09/19/16 at 20:00; Stop 09/20/16 at 09:53 ; Status DC Morphine Sulfate 4 mg PRN Q2HR PRN IV PAIN; Start 09/19/16 at 20:00; Stop 09/20 at 19:59 Nitroglycerin 0.4 mg 0.4 mg PRN Q5MIN PRN SL CHEST PAIN; Start 09/19/16 at 20: 00; Stop 09/20/16 at 19:59 Nicardipine HCl 50 mg/Sodium Chloride 270 ml @ 0 mls/hr CONT PRN IV SEE I/O RECORD Last administered on 09/19/16 23:56; Start 09/19/16 at 20:00; Stop 09/20 at 11:31; Status DC Promethazine HCl 12.5 mg/Sodium Chloride 50.5 ml @ 101 mls/hr 1X ONCE IV Last administered on 09/19/16 21:15; Start 09/19/16 at 21:15; Stop 09/19/16 at 21:44; Status DC Sodium Chloride 500 ml @ 0 mls/hr 1X ONCE IV Last administered on 09/19/16 21 :15; Start 09/19/16 at 21:15; Stop 09/19/16 at 21:16; Status DC Sodium Chloride (Iv Sodium Chloride 0.9% 500ml Bag) 500 ml @ 0 mls/hr 1X ONCE IV ; Start 09/19/16 at 22:15; Stop 09/19/16 at 22:16; Status DC Info (Do NOT chart on this placeholder) 1X ONCE MC ; Start 09/19/16 at 23:15; Stop 09/19/16 at 23:16; Status UNV Influenza Virus Vaccine Quadrival (Fluarix Quad [id number] Syringe) 0.5 ml ONCE ONCE VAX IM ; Start 09/20/16 at 09:00; Stop 09/20/16 at 09:01; Status DC Ondansetron HCl (Zofran) 4 mg PRN Q6HRS PRN IV NAUSEA/VOMITING; Start 09/20/16 at 09:52 Acetaminophen (Tylenol) 500 mg PRN Q6HRS PRN PO MILD PAIN / TEMP; Start at 10:00 Aspirin (Ecotrin) 81 mg DAILYWBKFT PO Last administered on 09/20/16 12:41; Start 09/20/16 at 11:00 Potassium Chloride 40 meq 40 meq 1X ONCE PO Last administered on 09/20/16 12: 42; Start 09/20/16 at 11:30; Stop 09/20/16 at 11:31; Status DC Magnesium Sulfate/ Dextrose (Magnesium Sulfate PREMIX 2GM) 50 ml @ 25 mls/hr 1X ONCE IV Last administered on 09/20/16 12:47; Start 09/20/16 at 12:00; Stop 09/20/16 at 13:59; Status DC Isosorbide Mononitrate (Imdur) 30 mg DAILY PO Last administered on 09/20/16 12 :44; Start 09/20/16 at 12:00 Lisinopril (Prinivil) 20 mg BID PO Last administered on 09/20/16 12:45; Start 09/20/16 at 12:00 Hydrochlorothiazide (Microzide) 12.5 mg DAILY PO Last administered on 12:44; Start 09/20/16 at 12:00 Hydralazine HCl (Apresoline) 10 mg PRN Q4HRS PRN IVP ELEVATED BP, SEE COMMENTS ; Start 09/20/16 at 11:30 Active Scripts Active Reported No Known Medications Prior To Admisstion (Info) Each 1 Each Vitals/I & O Vital Sign - Last 24 Hours 09/19/16 09/19/16 09/19/16 09/19/16 19:15 20:21 20:27 20:32 Temp 98.1 98.1 Pulse 61 66 64 80 Resp 20 18 B/P 210/126 210/126 198/101 181/110 Pulse Ox 94 95 96 O2 Delivery Room Air Room Air Room Air 09/19/16 09/19/16 09/19/16 09/19/16 20:38 20:43 20:48 21:02 Pulse 82 94 86 67 Resp 18 B/P 165/92 164/94 155/89 99/54 Pulse Ox 96 97 97 98 O2 Delivery Room Air Room Air Room Air 09/19/16 09/19/16 09/19/16 09/19/16 21:08 21:12 21:23 21:33 Pulse 61 80 82 78 Resp 22 22 20 18 B/P 97/55 117/66 164/105 141/89 Pulse Ox 96 99 99 98 O2 Delivery Room Air Room Air Room Air 09/19/16 09/19/16 09/19/16 09/19/16 21:43 21:53 21:58 22:08 Pulse 78 74 77 75 Resp 18 18 18 18 B/P 161/98 151/115 171/101 159/88 Pulse Ox 98 98 97 99 O2 Delivery Room Air Room Air Room Air Room Air 09/19/16 09/19/16 09/19/16 09/19/16 22:18 22:33 23:00 23:00 Temp 98.5 98.5 Pulse 80 77 61 Resp 18 18 20 B/P 149/71 162/92 208/125 Pulse Ox 99 99 97 O2 Delivery Room Air Room Air Room Air Room Air 09/20/16 09/20/16 09/20/16 09/20/16 00:00 00:15 00:30 00:45 Pulse 74 74 73 79 B/P 176/102 131/90 156/77 134/86 09/20/16 09/20/16 09/20/16 09/20/16 01:00 01:30 02:00 02:30 Pulse 77 81 82 80 B/P 132/80 129/80 142/90 142/83 09/20/16 09/20/16 09/20/16 09/20/16 03:00 03:00 05:00 07:00 Temp 98.5 98.3 98.5 98.3 Pulse 83 73 75 Resp 16 18 B/P 117/73 115/69 107/71 131/87 Pulse Ox 95 97 O2 Delivery Room Air Room Air 09/20/16 09/20/16 09/20/16 09/20/16 08:00 11:06 12:44 12:45 Temp 98.8 98.8 Pulse 74 69 69 Resp 18 B/P 129/90 153/94 153/94 Pulse Ox 95 O2 Delivery Room Air Room Air 09/20/16 14:48 Pulse 68 Resp 19 B/P 138/87 Pulse Ox 96 O2 Delivery Room Air Intake and Output 09/19/16 09/19/16 09/20/16 15:00 23:00 07:00 Intake Total 563.0 ml 566.1 ml Output Total 850 ml Balance 563.0 ml -283.9 ml MIGUELANGEL VILLALOBOS MD Sep 20, 2016 15:06
--- NOTE | 2016-09-20 16:52 | CARD ---
APPROVED REPORT EXAM: Two-dimensional and M-mode echocardiogram with Doppler and color Doppler. Other Information Quality : GoodHR: 65bpm INDICATION Abnormal ECG Hypertension/HCVD 2D DIMENSIONS RVDd2.9 (2.9-3.5cm)Left Atrium(2D)3.7 (1.6-4.0cm) IVSd1.4 (0.7-1.1cm)Aortic Root(2D)2.7 (2.0-3.7cm) LVDd5.1 (3.9-5.9cm)LVOT Diameter2.0 (1.8-2.4cm) PWd1.3 (0.7-1.1cm)LVDs3.7 (2.5-4.0cm) FS (%) 27.0 %SV65.2 ml LVEF(%)52.3 (>50%) Aortic Valve AoV Peak Seth.166.3cm/sAoV VTI22.4cm AO Peak GR.11.1mmHgLVOT Peak Seth.96.1cm/s LVOT VTI 16.92cmAO Mean GR.6mmHg PEDRO (VMAX)1.94hc7RBY (VTI)2.39cm2 Mitral Valve MV E Xwjqgoeb33.0cm/sMV DECEL [id number] MV A Daxxctfo64.7cm/sMV E Mean Gr.1mmHg MV ZUC47abF/A Ratio0.7 MV A [id number] (PHT)2.45cm2 TDI E/Lateral E'16.0E/Medial E'16.7 Pulmonary Valve PV Peak Lmnhzpuz58.1cm/sPV Peak Grad.4mmHg RVOT VTI12.6cm Tricuspid Valve TR P. Obgphgay378sn/sRAP HBBHGRXQ1gbUk TR Peak Gr.18ekNnWBGR66usHe LEFT VENTRICLE The left ventricle is normal size. There is mild to moderate concentric left ventricular hypertrophy. Left ventricle systolic function is low normal. The Ejection Fraction is estimated at 50%. There is normal LV segmental wall motion. Transmitral Doppler flow pattern is Grade I-abnormal relaxation emeka dian. There is no ventricular septal defect visualized. RIGHT VENTRICLE The right ventricle is normal size. The right ventricle is moderately hypertrophied. The right ventri cular systolic function is normal. ATRIA The left atrium size is normal. The right atrium size is normal. The interatrial septum is intact wit h no evidence for an atrial septal defect or patent foramen ovale as noted on 2-D or Doppler imaging. AORTIC VALVE The aortic valve is mildly thickened. The aortic valve is trileaflet. Doppler and Color Flow revealed no significant aortic regurgitation. There is no significant aortic valvular stenosis. MITRAL VALVE The mitral valve leaflets are thickened. There is no mitral valve stenosis. Doppler and Color Flow re vealed trace to mild mitral regurgitation. TRICUSPID VALVE The tricuspid valve is normal in structure. Doppler and Color Flow revealed mild tricuspid regurgitat ion. There is mild pulmonary hypertension. The PA pressure was estimated at 30 mmHg. PULMONIC VALVE The pulmonary valve is normal in structure. Doppler and Color Flow revealed trace pulmonic valvular r egurgitation. GREAT VESSELS The aortic root is normal in size. The ascending aorta is normal in size. Normal pulmonary venous sav w (Doppler). The IVC is normal in size and collapses >50% with inspiration. PERICARDIAL EFFUSION There is no evidence of significant pericardial effusion. Critical Notification Critical Value: No <Conclusion> Left ventricle systolic function is low normal. The Ejection Fraction is estimated at 50%. Transmitral Doppler flow pattern is Grade I-abnormal relaxation pattern. There is mild to moderate concentric left ventricular hypertrophy. Trace to mild mitral regurgitation. Mild tricuspid regurgitation. The PA pressure was estimated at 30 mmHg. There is no evidence of significant pericardial effusion.
[2016-09-21 03:30] VITALS: BP 142/90
[2016-09-21 07:58] VITALS: BP 140/87
[2016-09-21] MEDS: HYDROCHLOROTHIAZIDE 12.5 MG CAPSULE. PO SCH (10:11)
[2016-09-21] MEDS: ISOSORBIDE MONONITRATE ER 30 MG TAB.ER.24H PO SCH (10:11)
[2016-09-21] MEDS: LISINOPRIL 20 MG TABLET PO SCH (10:11)
[2016-09-21] MEDS: ASPIRIN ENTERIC COATED 81 MG TABLET.DR. PO SCH (10:11)
[2016-09-21 10:59] VITALS: BP 129/87
--- NOTE | 2016-09-21 11:21 | PDOC ---
CARDIO Progress Notes Date and Time Date of Service 09/21/2016 Time of Evaluation 1110 Subjective Subjective: No Chest Pain, No shortness of breath, No Palpitations, No Dizziness Vitals Vitals Vital Signs Date Time Temp Pulse Resp B/P Pulse Ox O2 Delivery O2 Flow Rate FiO2 09/21/16 10:59 98.6 68 20 129/87 95 Room Air 98.6 Weight Weight [ ] Input and Output Intake and Output Intake and Output 09/21/16 07:00 Intake Total 1190 ml Output Total 500 ml Balance 690 ml Intake Oral 1190 ml Output Urine Total 500 ml # Voids 4 Physical Exam HEENT: Neck Supple W Full Motion Chest: Symmetric LUNGS: Clear to Auscultation Heart: S1S2, RRR (no significant ectopies overnight) Abdomen: Soft N/T Extremities: No Edema, No Calf Tenderness Neurology: alert, oriented, follow commands Assessment Assessment 1. Malignant HTN: resolved 2. Acute CHF with diastolic dysfunction: compensated 3. Poly-Substance abuse: cocaine (1-2x weekly) and ETOH(4-5 shots of gin 4x weekly) 4. Elevated troponin: Peaked at 0.09. Suspect demand mediated due to above. EKG SR with LVH/LV strain. CP free 5. Tobaccoism 6. Homelessness Recommendations 1. Reinforced lifestyle modifications and adherence to treatment. 2. Social service consult 3. TTE noted hypertensive heart disease 4. Responding well with imdur/lisinopril/HCTZ $4 Rx [facility] 5. Daily 81 mg ECASA 6. Avoid BB due to cocaine use 7. Recommended to pt to follow up in our office in 4 weeks and will consider for outpt MPI pending compliance with cocaine avoidance. 8. Ada NATH per cardiac perspective. RAYMOND AL APRN Sep 21, 2016 11:21
[2016-09-21] MEDS ORDERED: ISOS30TA4 PO (13:51)
[2016-09-21] MEDS ORDERED: LISI-334 PO (13:51)
--- NOTE | 2016-09-21 13:53 | PDOC3 ---
Discharge Summary Visit Information Date of Admission: Sep 19, 2016 Date of Discharge: Sep 21, 2016 Admitting Diagnosis Comment: 1. Malignant HTN 2. Homeless Final Diagnosis Problems Medical Problems: (1) Chest pain Status: Acute (2) Hypertensive urgency Status: Acute (3) Malignant essential hypertension Status: Acute Brief Hospital Course Allergies Allergies Coded Allergies Type Severity Reaction Last Updated Verified No Known Drug Allergies 09/19/16 No Vital Signs Vital Signs Date Time Temp Pulse Resp B/P Pulse Ox O2 Delivery O2 Flow Rate FiO2 09/21/16 10:59 98.6 68 20 129/87 95 Room Air 98.6 Lab Results Laboratory Tests Test 09/19/16 19:55 09/19/16 23:00 09/20/16 01:55 09/20/16 08:00 White Blood Count 4.9x10^3/uL (4.0-11.0) Red Blood Count 4.53x10^6/uL (4.30-5.70) Hemoglobin 14.4g/dL (13.0-17.5) Hematocrit 43.7% (39.0-53.0) Mean Corpuscular Volume 97fL (79-100) Mean Corpuscular Hemoglobin 32pg (25-35) Mean Corpuscular Hemoglobin Concent 33g/dL (31-37) Red Cell Distribution Width 14.1% (11.5-14.5) Platelet Count 197x10^3/uL (140-400) Neutrophils (%) (Auto) 43% (31-73) Lymphocytes (%) (Auto) 44% (24-48) Monocytes (%) (Auto) 9% (0-9) Eosinophils (%) (Auto) 4% (0-3) Basophils (%) (Auto) 0% (0-3) Neutrophils # (Auto) 2.1x10^3uL (1.8-7.7) Lymphocytes # (Auto) 2.1x10^3/uL (1.0-4.8) Monocytes # (Auto) 0.5x10^3/uL (0.0-1.1) Eosinophils # (Auto) 0.2x10^3/uL (0.0-0.7) Basophils # (Auto) 0.0x10^3/uL (0.0-0.2) Sodium Level 145mmol/L (136-145) 144mmol/L (136-145) Potassium Level 3.7mmol/L (3.5-5.1) 3.3mmol/L (3.5-5.1) Chloride Level 106mmol/L (98-107) 108mmol/L (98-107) Carbon Dioxide Level 27mmol/L (21-32) 24mmol/L (21-32) Anion Gap 12 (6-14) 12 (6-14) Blood Urea Nitrogen 18mg/dL (8-26) 15mg/dL (8-26) Creatinine 1.2mg/dL (0.7-1.3) 1.2mg/dL (0.7-1.3) Estimated GFR (Cockcroft-Gault) 75.5 75.5 BUN/Creatinine Ratio 15 (6-20) 13 (6-20) Glucose Level 117mg/dL (70-99) 100mg/dL (70-99) Calcium Level 9.0mg/dL (8.5-10.1) 8.5mg/dL (8.5-10.1) Total Bilirubin 0.5mg/dL (0.2-1.0) 0.5mg/dL (0.2-1.0) Aspartate Amino Transf (AST/SGOT) 72U/L (15-37) 47U/L (15-37) Alanine Aminotransferase (ALT/SGPT) 65U/L (16-63) 54U/L (16-63) Alkaline Phosphatase 47U/L (46-116) 42U/L (46-116) Troponin I Quantitative 0.094ng/mL (0.000-0.055) 0.098ng/mL (0.000-0.055) 0.064ng/mL (0.000-0.055) BA-Xtm-K-Type Natriuretic Peptide 1250pg/mL (0-124) Total Protein 7.0g/dL (6.4-8.2) 6.7g/dL (6.4-8.2) Albumin 3.5g/dL (3.4-5.0) 3.4g/dL (3.4-5.0) Albumin/Globulin Ratio 1.0 (1.0-1.7) 1.0 (1.0-1.7) Urine Collection Type Unknown Urine Color Yellow Urine Clarity Clear Urine pH 6.5 Urine Specific [place] 1.020 Urine Protein Negativemg/dL (NEG-TRACE) Urine Glucose (UA) 100mg/dL (NEG) Urine Ketones (Stick) Negativemg/dL (NEG) Urine Blood Negative (NEG) Urine Nitrite Negative (NEG) Urine Bilirubin Negative (NEG) Urine Urobilinogen Dipstick 1.0mg/dL (0.2 mg/dL) Urine Leukocyte Esterase Negative (NEG) Urine RBC 0/HPF (0-2) Urine WBC Rare/HPF (0-4) Urine Squamous Epithelial Cells None/LPF Urine Bacteria 0/HPF (0-FEW) Urine Hyaline Casts Few/HPF Urine Mucus Mod/LPF Urine Opiates Screen Neg (NEG) Urine Methadone Screen Neg (NEG) Urine Barbiturates Neg (NEG) Urine Phencyclidine Screen Neg (NEG) Urine Amphetamine/Methamphetamine Neg (NEG) Urine Benzodiazepines Screen Neg (NEG) Urine Cocaine Screen Pos (NEG) Urine Cannabinoids Screen Neg (NEG) Urine Ethyl Alcohol Pos (NEG) Magnesium Level 1.6mg/dL (1.8-2.4) Triglycerides Level 92mg/dL (0-150) Cholesterol Level 197mg/dL (0-200) LDL Cholesterol, Calculated 77mg/dL (0-100) VLDL Cholesterol, Calculated 18mg/dL (0-40) HDL Cholesterol 102mg/dL (40-60) Cholesterol/HDL Ratio 1.9 Thyroid Stimulating Hormone (TSH) 1.463uIU/mL (0.358-3.74) Brief Hospital Course Mr. Khoury is a 56 old AA male admitted for malignant hTN, needed cardene gtt 24 hrs, Started on 2 new meds, Pt homeless. Being arranged for correction by [facility] COnsults: CArds Procedure: cardene gtt Dispo: homeless correction Pt seen and examined d/w jamal viveros and rn and pt Discharge Information Condition at Discharge: Improved, Stable Disposition/Orders: D/C to Home Miscellaneous Medications Info (No Known Medications Prior To Admisstion) 1 EACH [facility] (Reported) MIGUELANGEL VILLALOBOS MD Sep 21, 2016 13:53
[2016-09-21 15:00] VITALS: BP 132/84
== END 2016-09-21 16:21 | disposition home or self-care (01) | DRG 304 ==
LOC: ER 18:54 → CVICU 20:00
PROVIDERS: ADMIT Internal Medicine Hematology & Oncology; ATTEND Internal Medicine Hematology & Oncology
DX: I16.0 Hypertensive urgency (principal); I50.33 Acute on chronic diastolic (congestive) heart failure; I11.0 Hypertensive heart disease with heart failure; Z59.0 Homelessness; F17.210 Nicotine dependence, cigarettes, uncomplicated; F14.10 Cocaine abuse, uncomplicated; Y90.0 Blood alcohol level of less than 20 mg/100 ml; Z79.899 Other long term (current) drug therapy; Z91.14 Patient's other noncompliance with medication regimen; Z79.82 Long term (current) use of aspirin
CPT/HCPCS: 36415; 71010; 80053; 80061; 81001; 83735; 83880; 84443; 84484; 85027; 90686; 93005; 93306; G0481; J0360; J2405; J2550; J7040; J7050; J7060; 99291-25; J7030

== ENCOUNTER 2019-06-26 14:42 | Emergency (ER) | payer MEDICAID, OTHER ==
[~2019-06-26] VITALS: Ht 180.3 cm; Wt 61.2 kg
[~2019-06-26 14:42] MED LIST: AMLO10TA8 PO; ISOS30TA4 PO; LISI-130 PO; LISI-334 PO
[2019-06-26] MEDS ORDERED: IV NORMAL SALINE 1000ML BAG 1,000 ML IV ONE (15:15)
[2019-06-26] MEDS ORDERED: LIDOCAINE 2% 20 ML VIAL. IJ STA (15:15)
--- NOTE | 2019-06-26 15:27 | EKG ---
[facility] [address] [place] [address] Test Date: 2019-06-26 Test Time: 15:23:10 Pat Name: JEFFERSON PAREKH Department: Room: Gender: M Chief Estimator: : 1960 Requested By: LEILA TELLES Order Number: [id number] Reading MD: Measurements Intervals [place] Rate: 70 P: 47 ID: [id number] QRS: 27 QRSD: 86 T: 166 QT: 432 QTc: 470 Interpretive Statements SINUS RHYTHM LEFT ATRIAL ABNORMALITY ST & T ABNORMALITY, CONSIDER ANTEROLATERAL ISCHEMIA OR LEFT VENTRICULAR STRAIN INFEROLATERAL ISCHEMIA OR LEFT VENTRICULAR STRAIN T ABNORMALITY IN ANTERIOR LEADS ABNORMAL ECG RI6.01 No previous ECG available for comparison
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
[2019-06-26 15:45] VITALS: BP 169/97
[2019-06-26 15:50] LABS: BASO # 0.1 x10^3/uL (0.0-0.2); BASO % 1 % (0-3); EOS # 0.1 x10^3/uL (0.0-0.7); EOS % 2 % (0-3); HEMATOCRIT 41.9 % (39.0-53.0); HEMOGLOBIN 14.2 g/dL (13.0-17.5); LYMPH # 1.8 x10^3/uL (1.0-4.8); LYMPH % 34 % (24-48); MEAN CORPUSCULAR HEMOGLOBIN 33 pg (25-35); MEAN CORPUSCULAR HGB CONC 34 g/dL (31-37); MEAN CORPUSCULAR VOLUME 99 fL (79-100); MONO # 0.6 x10^3/uL (0.0-1.1); MONO % 11 % (0-9); NEUT # 2.8 x10^3/uL (1.8-7.7); NEUT % 53 % (31-73); PLATELET COUNT 199 x10^3/uL (140-400); RED BLOOD COUNT 4.23 x10^6/uL (4.30-5.70); WHITE BLOOD COUNT 5.4 x10^3/uL (4.0-11.0)
--- NOTE | 2019-06-26 15:56 | RAD ---
EXAM: Chest, 2 views. HISTORY: Weakness and numbness. COMPARISON: 03/15/2018 FINDINGS: 2 views of the chest are obtained. There is no infiltrate, pleural effusion or pneumothorax. There is stable cardiomegaly. There is hyperinflation due to inspiratory effort or emphysema. There are calcified granulomas. IMPRESSION: 1. No acute pulmonary finding. 2. Cardiomegaly. Electronically signed by: Yin Khan MD (06/26/2019 3:53 PM) [place] [id number]
[2019-06-26 15:59] LABS: CREATININE 1.4 mg/dL (0.7-1.3); GFR 62.6; POTASSIUM 4.1 mmol/L (3.5-5.1)
[2019-06-26 16:06] LABS: ALBUMIN 3.9 g/dL (3.4-5.0); ALBUMIN/GLOBULIN RATIO 1.2 (1.0-1.7); TOTAL BILIRUBIN 0.4 mg/dL (0.2-1.0); TOTAL PROTEIN 7.2 g/dL (6.4-8.2)
== END 2019-06-26 16:24 | disposition home or self-care (01) ==
LOC: ER 14:42
DX: G43.909 Migraine, unspecified, not intractable, without status migrainosus (principal); I10 Essential (primary) hypertension; R55 Syncope and collapse; F10.20 Alcohol dependence, uncomplicated; Y90.9 Presence of alcohol in blood, level not specified
CPT/HCPCS: 36415; 71046; 80053; 83880; 84484; 85025; 85610; 85730; 93005; 96360; 99285; J2001; J7030